=== PATIENT | male | born 1935 ===

== ENCOUNTER 2018-04-23 14:28 | Outpatient (CLI) | payer OTHER ==
[~2018-04-23] VITALS: Ht 167.6 cm; Wt 76.2 kg
== END 2018-04-23 14:45 | disposition home or self-care (01) ==
LOC: OFIC 805 14:28
DX: R13.19 Other dysphagia (principal); R22.1 Localized swelling, mass and lump, neck; M54.2 Cervicalgia

== ENCOUNTER → 2018-10-02 06:00 | Outpatient (CLI) | payer OTHER ==
[~2018-10-02] VITALS: Ht 170.2 cm; Wt 77.1 kg
[~2018-10-02 06:00] MED LIST: CLARITIN10 M1 PO; GABAPENTIN300 MG PO; GLIPIZIDE ER10 MG PO; LANTUS SOL100 UNIT/1; LISINOPRIL40 MG PO; NORVASC5 MG PO; TOPROL XL100 M1 PO; ZANTAC300 MG PO; ZOCOR40 MG PO; ZOLOFT100 MG PO; [UNRECOGNIZED DRUG - OTHER] PO
== END | disposition home or self-care (01) ==
LOC: LAB 06:00 → EDSTATUS 10-09 07:30 → SURH 10-09 07:30
DX: M17.12 Unilateral primary osteoarthritis, left knee (principal); Z01.812 Encounter for preprocedural laboratory examination; Z01.811 Encounter for preprocedural respiratory examination

== ENCOUNTER 2019-02-14 11:30 | Inpatient (IN) | payer OTHER ==
[~2019-02-14] VITALS: Ht 170.2 cm; Wt 76.7 kg
[2019-02-21] MEDS ORDERED: HYDRALAZINE HC100 MG PO (10:18)
[2019-02-21] MEDS ORDERED: APRESOLINE 10MG10 MG PO (10:19)
[2019-02-21] MEDS ORDERED: PERCOCET 5-3251 EACH PO (15:02)
[2019-02-21] MEDS ORDERED: DUI500 PO (15:02)
[2019-02-21] MEDS ORDERED: ELIQUIS2.5 MG PO (15:02)
== END 2019-02-21 20:35 | DRG 470 ==
LOC: SURH 02-19 06:00 → O/R 02-19 06:00 → SURH 02-19 11:30
PROVIDERS: ADMIT Orthopaedic Surgery
PROC: 0MTM0ZZ Resection of Left Hip Bursa and Ligament, Open Approach (ICD-10-PCS; 2019-02-19)
PROC: 0SRB0JZ Replacement of Left Hip Joint with Synthetic Substitute, Open Approach (ICD-10-PCS; principal; 2019-02-19 16:00)
DX: M16.12 Unilateral primary osteoarthritis, left hip (principal); D62 Acute posthemorrhagic anemia; I10 Essential (primary) hypertension; E11.9 Type 2 diabetes mellitus without complications; I25.10 Atherosclerotic heart disease of native coronary artery without angina pectoris; M54.2 Cervicalgia